=== PATIENT | female | born 1985 ===

== ENCOUNTER 2016-06-22 16:38 | Emergency (ER) | payer SELFPAY ==
[2016-06-22 17:12] VITALS: BMI 31.8
--- NOTE | 2016-06-22 17:53 | OBHP ---
Datetime: 06/22/2016 17:50 Admit Comment, IP Provider: Carito SALOMON 13cm; breech +FCA noted SSE: closed cervix; cerclage placed; white thick discharge +hyphae noted on slide A: 22w vagintis anjali PLAN: Teraozol 7 crean f/u next tues as scheduled Datetime: 06/22/2016 17:00 IP Adm Impression: , intrauterine IP Admit Plan: Observation/Evaluation Extremities - PN: Normal Abdomen - PN: Normal Back - PN: Normal Lungs - PN: Normal Heart - PN: Normal Thyroid - PN: Normal Neurologic - PN: Normal HEENT - PN: Normal General - PN: Normal FHR - Baseline A Provider: + Membranes, Provider: Intact Comments, ACOG Physical Exam: ROS: General: no weakness; no fatigue HEENT: no HARKINS; no visual dist CV: no palpitations; no no CP GI: noN/V no diarhea No epigastric pain; non radiating : no F/U/D MS: No joint pain Pool Provider: Negative Ferning Provider: Negative IP Hx Assessment: The History has been Reviewed and is Current Vital Signs Provider: Reviewed; Within Normal Limits IP Chief Complaint: Other Dilatation, Provider: 0
--- NOTE | 2016-06-22 17:54 | OBDCSUM ---
Datetime: 06/22/2016 17:50 Discharged to, Provider: Home Follow up at, Provider: OBDULIO Disch Instr Activity: Normal activity Disch Instr Diet: Regular Discharge Time: 06/22/2016 17:50 Follow up in weeks, Provider: Tuesday, next scheduled apt. Disch Referrals: None Discharge Comment, Provider: jacob 7 Discharge Diagnosis Prov Other: vaginitis
--- NOTE | 2016-06-22 18:39 | US ---
PROCEDURE: Second trimester ultrasound. HISTORY: ?ruptuire of membranes Assess amniotic fluid volume. Relevant surgical history: Status post cerclage. COMPARISON: 03/09/2016.. TECHNIQUE: Standard protocol for this study/examination. FINDINGS: Breech presentation. Anterior Placenta. No evidence of abruption or previa Gestational age derived from LMP 23 weeks. EDUARDO 10/19/2016. Gestational age derived from the following biometric parameters twenty-one weeks 6 days. EDUARDO 10/27/2016 . Biparietal diameter 5.4 cm Head [id number] cm Abdominal circumference 16.4 cm Femur length 3.75 cm Estimated weight 29233.5 g Calculated cardiac rate 148 beats per min. Open cervix measuring 3.8 cm Amniotic fluid index 13.4 cm. IMPRESSION: Live intrauterine gestation twenty-one weeks 6 days. Gestational concordance documented. Adequate interval progression compared to the prior study. Amniotic fluid index 13.4 cm.
== END 2016-06-22 23:00 | disposition home or self-care (01) ==
LOC: H.EROB2 16:38
DX: O26.92 Pregnancy related conditions, unspecified, second trimester (principal); B37.3 Candidiasis of vulva and vagina; Z3A.22 22 weeks gestation of pregnancy

== ENCOUNTER 2016-07-12 15:31 | Emergency (ER) | payer SELFPAY ==
[2016-07-12 16:23] VITALS: BMI 29.5
[2016-07-12 16:49] LABS: HEMATOCRIT 36.9 % (34.0-47.0); MEAN CELL VOLUME 92.2 fl (81.0-99.0); MEAN CORPUSCULAR HEMOGLOBIN 31.3 pg (27.0-31.0); PLATELET COUNT 230 K/uL (130-400); WHITE BLOOD COUNT 17.3 K/uL (4.8-10.8)
[2016-07-12] MEDS ORDERED: Lactated Ringer's 1,000 ML IV SCH (17:50)
[2016-07-12 17:52] LABS: NEUTROPHIL 90 % (42-75); TOTAL CELLS COUNTED 100
--- NOTE | 2016-07-12 18:30 | US ---
Limited OB ultrasound Indication: heart rate and AIME only Technique: Grayscale, color flow, and M-mode sonographic images of the single live intrauterine were obtained. Comparison: Limited OB ultrasound Findings: Single live intrauterine gestation. There is a normal amount of amniotic fluid. The AIME measures 16.7 cm. M-mode imaging demonstrates a heart rate to be 154.9 bpm beats per min. Impression: The AIME measures 16.7 cm. M-mode imaging demonstrates a heart rate to be 154.9 bpm beats per min.
--- NOTE | 2016-07-12 18:36 | OBHP ---
Datetime: 07/12/2016 18:05 IP Adm Impression: , intrauterine IP Admit Plan: Observation/Evaluation Admit Comment, IP Provider: Patient is a @ 24.5 wks with complaints of increased watery vagi nal discharge. Patient had some vaginal itching last night and used some terazole cream that she had from a previous diagnosis of yeast infection. Patient reports that the discharge is watery and she patten s abdominal cramping. Patient has a history of a rescue cerclage placed 06/17 @ 20 wks, fetus also has echogenic bowel that appears slightly dilated. Patient is a pregestational diabetic that had a normal HgbA1c, but as per MFM, patient has been recording blood sugars and admitting finger still here is 8 2. VE=os slightly dilated with stitch present, yellow discharge coming from os, no pooling [id number] mod soniya, +accels, variable decels TOCO = irritability A/P 1. Patient presents for suspected rupture. Patient on exam has yellowish discharge coming from cer vical os and lower abdominal tenderness, no fundal tenderness. Patient when she first presented did n ot have a fever and now patient has a fever of 99.5 2. FHR on initial presentation was 150s and now continues to be 150s mod soniya 3. WBC = 17.5 with Neutrophil count 90%. AIME by beside is [address] Green and patient to be immediately transfered to [facility] for suspected chorioamnionitis Pelvic Type - PN: Adequate Extremities - PN: Normal Abdomen - PN: Normal Back - PN: Normal Breast - PN: Normal Lungs - PN: Normal Heart - PN: Normal Thyroid - PN: Normal Neurologic - PN: Normal HEENT - PN: Normal General - PN: Normal FHR - Baseline A Provider: 150s Contraction Comments Provider: irritability Vital Signs Provider: Reviewed; Within Normal Limits NICHD Decel Fetus A IP Provider: Variable Dilatation, Provider: slighted dilated with stich Genitourinary Exam: Normal DTRs - PN: Normal
[2016-07-12 19:28] LABS: EOSINOPHIL 1 % (0-7); LARGE PLATELETS PRESENT
== END 2016-07-12 19:40 | disposition short-term general hospital (02) ==
LOC: H.EROB2 15:31
DX: O26.892 Other specified pregnancy related conditions, second trimester (principal); Z3A.24 24 weeks gestation of pregnancy

== ENCOUNTER 2017-02-16 03:45 | Emergency (ER) | payer SELFPAY ==
[2017-02-16 03:45] VITALS: BMI 29.5
[2017-02-16 04:10] VITALS: BP 122/71; PULSE 75; RESP 18; TEMP 97.7; O2SAT 100
--- NOTE | 2017-02-16 04:26 | ED PDOC ---
HPI: Female Pain Time Seen by Provider: 02/16/17 03:47 Chief Complaint (Nursing): Female Genitourinary Chief Complaint (Provider): suprapubic pressure, frequent urination x 2 days History Per: Patient History/Exam Limitations: no limitations Onset/Duration Of Symptoms: Days Current Symptoms Are (Timing): Still Present Quality Of Discomfort: Dull, Pressure Associated Symptoms: denies: Fever, Chills, Nausea, Vomiting, Loss Of Appetite, Back Pain Alleviating Factors: None Additional Complaint(s): Pt also reports breast feeding. Past Medical History Reviewed: Historical Data, Nursing Documentation, Vital Signs Vital Signs: Last Vital Signs Temp 97.7 F 02/16/17 04:06 Pulse 75 02/16/17 04:06 Resp 18 02/16/17 04:06 BP 122/71 02/16/17 04:06 Pulse Ox 100 02/16/17 04:06 - Medical History PMH: No Chronic Diseases - Surgical History Surgical History: No Surg Hx - Family History Family History: States: Unknown Family Hx - Living Arrangements Living Arrangements: With Family - Social History Current smoker - smoking cessation education provided: No - Home Medications Home Medications: Ambulatory Orders Medication Instructions Recorded Cetirizine HCl [Zyrtec] 10 mg PO QAM #10 capsule 10/03/15 Famotidine [Pepcid] 20 mg PO Q12 #14 tab 10/03/15 Prednisone 60 mg PO QAM #12 tablet 10/03/15 Terconazole [Terazol 7 (0.4%)CREAM] 7 applic VG HS #1 tube 06/22/16 Cephalexin [Keflex] 500 mg PO BID #14 capsule 02/16/17 - Allergies Allergies/Adverse Reactions: Allergies Allergy/AdvReac Type Severity Reaction Status Date / Time No Known Allergies Allergy Verified 02/16/17 04:05 Review of Systems ROS Statement: Except As Marked, All Systems Reviewed And Found Negative Constitutional: Negative for: Fever, Chills Gastrointestinal: Positive for: Abdominal Pain (Suprapubic, bilateral). Negative for: Nausea, Vomiting Physical Exam - Reviewed Nursing Documentation Reviewed: Yes Vital Signs Reviewed: Yes - Physical Exam Appears: Positive for: Well, Non-toxic, No Acute Distress Head Exam: Positive for: ATRAUMATIC, NORMAL INSPECTION, NORMOCEPHALIC Skin: Positive for: Normal Color, Warm, DRY Eye Exam: Positive for: Normal appearance ENT: Positive for: Normal ENT Inspection Neck: Positive for: Normal, Painless ROM Cardiovascular/Chest: Positive for: Regular Rate, Rhythm Respiratory: Positive for: CNT, Normal Breath Sounds Gastrointestinal/Abdominal: Positive for: Bowel Sounds, Soft, Tenderness ( Suprapubic, mild). Negative for: Normal Exam, Guarding, Rebound Back: Positive for: Normal Inspection Extremity: Positive for: Normal ROM Neurologic/Psych: Positive for: Alert, Oriented - ECG O2 Sat by Pulse Oximetry: 100 Pulse Ox Interpretation: Normal Disposition - Clinical Impression Clinical Impression: Urinary tract infection - Patient ED Disposition Is Patient to be Admitted: No Counseled Patient/Family Regarding: Diagnosis, Need For Followup, Rx Given - Disposition Disposition: Routine/Home Disposition Time: 04:51 Condition: GOOD Prescriptions: Cephalexin [Keflex] 500 mg PO BID #14 capsule Instructions: Urinary Tract Infection in Women (ED) Forms: [facility] (Mongolian) Print Language: LIBYAN
== END 2017-02-16 04:57 | disposition home or self-care (01) ==
LOC: H.ER 03:45
DX: N39.0 Urinary tract infection, site not specified (principal)